=== PATIENT | male | born 1975 | race Caucasian/White ===

== ENCOUNTER 2022-01-16 16:55 | Observation (INO) | payer OTHER, SELFPAY ==
[2022-01-16] VITALS (38 sets, daily range): BP systolic 137–211; BP diastolic 87–127; PULSE 60–82; RESP 10–22; TEMP 36–36.4; O2SAT 95–100; BMI 28.8
--- NOTE | 2022-01-16 17:10 | DI.RAD.S_ITS ---
PROCEDURE: XR CHEST 1V INDICATIONS: chest pain TECHNIQUE: One view of the chest was acquired. COMPARISON: None. FINDINGS: Surgical changes and devices: None. Lungs and pleura: On this semiupright portable chest examination, no large pneumothorax or large pleural effusions are seen. No focal infiltrates are seen. Mediastinum: Mediastinal contours appear normal. Heart size is normal. Bones and chest wall: No suspicious bony lesions. Overlying soft tissues appear unremarkable. IMPRESSION: Limited portable chest examination, without a significant cardiopulmonary abnormality identified. Dictated by: Armen Gonzalez M.D. on 01/16/2022 at 16:57 Approved by: Armen Gonzalez M.D. on 01/16/2022 at 16:57
[2022-01-16 18:00] LABS: Alanine Aminotransferase 32 IU/L (<50); Albumin 4.8 g/dL (3.5-5.0); Albumin Globulin Ratio 1.5 (1.0-2.8); Alkaline Phosphatase 64 U/L (38-126); Aspartate Aminotransferase 34 IU/L (17-59); BUN Creatinine Ratio 26.7 (6-22); Bilirubin Total 0.8 mg/dL (0.2-1.3); Blood Urea Nitrogen 16 mg/dL (9-20); Calcium 9.3 mg/dL (8.4-10.2); Carbon Dioxide 21 mmol/L (22-32); Chloride 105 mmol/L (98-107); Creatine Kinase 109 U/L (55-170); Estimated Glomerular Filt Rate > 60 mL/min (>60); Globulin 3.3 g/dL (1.7-4.1); Glucose 99 mg/dL (70-100); Lipase 85 U/L (23-300); Magnesium 1.9 mg/dL (1.6-2.3); Potassium 3.8 mmol/L (3.4-5.1); Sodium 140 mmol/L (137-145); Total Protein 8.1 g/dL (6.3-8.2)
[2022-01-16 18:01] LABS: Add Manual Diff / Slide Review NO; Basophils Absolute Auto 0 /uL (0-100); Basophils Percent Auto 0.5 % (0-2); Eosinophils Absolute Auto 200 /uL (0-450); Eosinophils Percent Auto 2.9 % (2-4); Hematocrit 45.5 % (41-53); Hemoglobin 15.6 g/dL (13.5-17.5); Lymphocytes Absolute Auto 1300 /uL (1100-4500); Lymphocytes Percent Auto 19.7 % (25-40); Mean Corpuscular HGB Conc 34.2 % (30-36); Mean Corpuscular Hemoglobin 30.7 PG (26-34); Mean Corpuscular Volume 89.9 fL (80-100); Monocytes Absolute Auto 500 /uL (0-900); Monocytes Percent Auto 7.6 % (3-14); Neutrophils Absolute Auto 4500 /uL (1500-7000); Neutrophils Percent Auto 69.3 % (50-75); Platelet Count 189 X10^3/uL (150-400); Red Blood Cell Count 5.06 X10^6/uL (4.5-5.9); Red Cell Distribution Width 13.9 % (11.6-14.8); White Blood Cell Count 6.4 X10^3/uL (4.5-11.0)
[2022-01-16 18:15] LABS: CKMB % Relative Index 1.5 % (1.5-5.0); Creatine Kinase MB 1.64 ng/mL (<2.37)
--- NOTE | 2022-01-16 18:19 | DI.CT.S_ITS ---
PROCEDURE: CT HEAD/BRAIN WO CON INDICATIONS: Headache TECHNIQUE: Noncontrast 4.5 mm thick angled axial sections acquired from the foramen magnum to the vertex, with coronal and sagittal reformats. For radiation dose reduction, the following was used: automated exposure control, adjustment of mA and/or kV according to patient size. COMPARISON: None. FINDINGS: Image quality: Excellent. CSF spaces: Basal cisterns are patent. No extra-axial fluid collections. Ventricles are normal in size and shape. Brain: No midline shift. No intracranial masses or hemorrhage. Ta-white matter interface is normal. Skull and face: Calvarium and visualized facial bones are intact, without suspicious lesions. Sinuses: Visualized sinuses and mastoids are clear. IMPRESSION: No CT evidence of acute intracranial abnormalities. Dictated by: Juan Mckeon M.D. on 01/16/2022 at 18:30 Approved by: Juan Mckeon M.D. on 01/16/2022 at 18:31
[2022-01-16 18:22] LABS: HEMOLYSIS 78 (0-50)
--- NOTE | 2022-01-16 18:25 | ED.CHESTPAIN ---
HPI - Chest Pain General Chief Complaint: Chest Pain Stated Complaint: migraine/tightness in chest Time Seen by Provider: 01/16/22 18:07 Source: patient Mode of arrival: Ambulatory Limitations: no limitations History of Present Illness HPI narrative: Patient here for headache neck pain and chest pain that started about 2 or 3 hours ago. No back pain no abdominal pain. No syncope. No numbness tingling or weakness. Patient states he was told he had high blood pressure 3 years ago but never followed up or took blood pressure medication. Has never been on blood pressure medication. No recent exertional chest pain or at rest or dyspnea. No diaphoresis. No nausea or vomiting. Patient states lights do bother his eyes as well as sound. No history of migraine headaches. Blood pressure noted. Nicardipine ordered as well as imaging and EKG. No recent illness. No fever chills cough cold or congestion. No family history of brain aneurysms or heart attacks/in primary family. No chest aneurysm or dissection. No PEs or DVTs Fast exam is negative Related Data Home Medications Medication Instructions Recorded Confirmed No Known Home Medications 01/16/22 01/16/22 Allergies Allergy/AdvReac Type Severity Reaction Status Date / Time No Known Drug Allergies Allergy Verified 01/16/22 20:53 Review of Systems Review of Systems Narrative: GENERAL: Denies chills, fatigue, malaise, fever, sweats. HEENT: Denies sinus pain, ear pain, sore throat, positive neck pain RESPIRATORY: Denies dyspnea, cough CARDIOVASCULAR: Positive chest pain, negative palpitations GASTROINTESTINAL: Denies nausea, vomiting, abdominal pain : Denies dysuria, frequency, hematuria MUSCULOSKELETAL: denies muscle or bony pain SKIN: Denies rash, skin lesions NEUROLOGIC: Denies weakness, numbness, positive headache ROS Unobtainable: All systems reviewed & are unremarkable except as noted in HPI and below Patient History Social History household members: none Smoking Status: Current every day smoker alcohol intake: current Smoking Status: Current every day smoker alcohol intake frequency: 3 or more drinks per day Substance Use Type: marijuana Exam Narrative Exam Narrative: GENERAL: in no distress, not toxic not dyspneic HEAD: Normocephalic. EYES: Pupils equal round No scleral icterus. Mild photophobia with endoscopy. No papilledema. ENT: Mucous membranes moist. NECK: Trachea midline. No carotid bruits. No stridor. Strong bilateral carotid pulses, no meningeal signs CARDIOVASCULAR: Regular rate and rhythm without murmurs RESPIRATORY: Clear to auscultation. Breath sounds equal bilaterally. No wheezes, rales, or rhonchi. GASTROINTESTINAL: Abdomen soft, non-tender EXTREMITIES: No gross deformities. BACK: No flank tenderness. NEURO: AOx4. Clear speech no facial droop light touch intact to bilateral face and hands with strong equal staff genetic counselor. Strong bilateral patellar reflexes SKIN: Warm and dry PSYCH: Not anxious, is cooperative Initial Vital Signs Initial Vital Signs: Vital Signs Temperature 96.8 F L 01/16/22 17:06 Pulse Rate 66 01/16/22 17:06 Respiratory Rate 18 01/16/22 17:06 Blood Pressure 206/118 H 01/16/22 17:06 Pulse Oximetry 100 01/16/22 17:06 Oxygen Delivery Method 01/16/22 17:06 Course Course Course Narrative: No new issues during course of stay Decision to Admit Date: 01/16/22 Decision to Admit time: 18:50 Orders Ordered: ED Orders 01/16/22 17:10 XR chest 1V Stat EKG-12 Lead Stat 01/16/22 17:34 Complete Blood Count AUTO DIFF Stat Comprehensive Metabolic Panel Stat Lipase Stat Magnesium Stat Troponin & CK Cardiac Panel Stat 01/16/22 18:19 CT head/brain wo con Stat 01/16/22 20:30 COVID19 -Nasal RAPID/Pre-Proc Stat Acetaminophen (Acetaminophen 325 Mg Tablet) 650 mg PO Q6H PRN PRN Reason: Fever/Mild Pain (1-3) Hydrocodone Bitart/Acetaminophen (Hydrocodone/Acet 5/325 Tablet) 1 tab PO Q8H PRN PRN Reason: Pain, Moderate (4-6) Enalaprilat (Enalaprilat 2.5 Mg/ 2 Ml Vial) 0.625 mg IV Q6H PRN PRN Reason: Hypertension Enoxaparin Sodium (Enoxaparin 40 Mg/0.4 Ml Syringe) 40 mg SUBCUT DAILY KIM Nicardipine HCl 25 mg/ Sodium (Chloride) 250 mls @ 50 mls/hr IV TITRATE KIM; Protocol Last Titration: 01/16/22 19:16 Dose: 0 mg/hr, 0 mls/hr Documented By: Titration: 01/16/22 19:15 Dose: 5 mg/hr, 50 mls/hr Documented By: Admin: 01/16/22 18:51 Dose: 5 mg/hr, 50 mls/hr Documented By: NR Influenza Virus Vaccine (Influenza Vaccine Qiv 0.5 Ml Syringe) 0.5 ml IM .ONCE ONE Stop: 01/17/22 17:01 Lisinopril (Lisinopril 10 Mg Tablet) 10 mg PO DAILY KIM Naloxone HCl (Naloxone 0.4 Mg/Ml Vial) 0.2 mg IV Q2MIN PRN PRN Reason: Opiate Reversal Ondansetron HCl (Ondansetron 4 Mg Odt) 4 mg PO Q8HR PRN PRN Reason: Nausea And Vomiting Discontinued Medications Acetaminophen (Acetaminophen 325 Mg Tablet) 975 mg PO NOW ONE Stop: 01/16/22 20:39 Last Admin: 01/16/22 21:03 Dose: 975 mg Documented By: NR Enalaprilat (Enalaprilat 2.5 Mg/ 2 Ml Vial) 0.625 mg IV NOW ONE Stop: 01/16/22 19:17 Last Admin: 01/16/22 20:36 Dose: 0.625 mg Documented By: NR Morphine Sulfate (Morphine 4 Mg/Ml Inj) 2 mg IV NOW ONE Stop: 01/16/22 20:39 Last Admin: 01/16/22 23:02 Dose: Not Given Documented By: NR Ondansetron HCl (Ondansetron 4 Mg/2 Ml Inj) 4 mg IV NOW ONE Stop: 01/16/22 20:39 Last Admin: 01/16/22 23:03 Dose: Not Given Documented By: NR Reevaluation(s) Reevaluation #1: Patient up and walking to the bathroom, no ataxia. Nonantalgic. Not requiring any assist. Time: 18:51 Reevaluation #2: Blood pressure has improved 186/114 but map still at 1:29 a.m., headache has improved. Time: 21:24 Consultations Consultation #1: Spoke with hospitalist, Estella Penn, she would like to pause the nicardipine drip, would like to try IV enalapril with 0. 625, recheck blood pressure in 1 hour and call her back Time: 19:18 Consultation #2: Spoke with hospitalist, Estella Penn, she will admit patient. Not requiring ICU at this time. Has improved with enalapril IV. Time: 21:24 Vital Signs Vital signs: Vital Signs - 8 hr 01/16/22 17:06 01/16/22 17:24 01/16/22 17:26 Temperature 96.8 F L Pulse Rate 66 64 Respiratory Rate 18 Blood Pressure 206/118 H 197/121 H Pulse Oximetry 100 100 Oxygen Delivery Method Room Air 01/16/22 17:26 01/16/22 17:30 01/16/22 17:30 Temperature Pulse Rate 64 60 Respiratory Rate 16 16 Blood Pressure 206/119 H Pulse Oximetry 100 99 Oxygen Delivery Method 01/16/22 18:00 01/16/22 18:00 01/16/22 18:18 Temperature Pulse Rate 60 67 Respiratory Rate 13 Blood Pressure 206/126 H 206/126 H Pulse Oximetry 99 Oxygen Delivery Method Room Air 01/16/22 18:23 01/16/22 18:30 01/16/22 18:30 Temperature 97.5 F L Pulse Rate 64 Respiratory Rate 14 Blood Pressure 211/115 H Pulse Oximetry 100 Oxygen Delivery Method 01/16/22 18:54 01/16/22 18:54 01/16/22 19:00 Temperature Pulse Rate 65 Respiratory Rate 16 Blood Pressure 200/127 H 199/122 H Pulse Oximetry 98 Oxygen Delivery Method 01/16/22 19:00 01/16/22 19:06 01/16/22 19:06 Temperature Pulse Rate 66 70 Respiratory Rate 16 17 Blood Pressure 185/100 H Pulse Oximetry 98 96 Oxygen Delivery Method 01/16/22 19:10 01/16/22 19:10 01/16/22 19:15 Temperature Pulse Rate 69 68 Respiratory Rate 18 17 Blood Pressure 185/104 H Pulse Oximetry 96 96 Oxygen Delivery Method 01/16/22 19:15 01/16/22 19:20 01/16/22 19:20 Temperature Pulse Rate 69 Respiratory Rate 14 Blood Pressure 181/111 H 170/112 H Pulse Oximetry 96 Oxygen Delivery Method 01/16/22 19:25 01/16/22 19:25 01/16/22 19:30 Temperature Pulse Rate 68 Respiratory Rate 13 Blood Pressure 177/112 H 173/112 H Pulse Oximetry 96 Oxygen Delivery Method 01/16/22 19:30 01/16/22 19:35 01/16/22 19:35 Temperature Pulse Rate 68 72 Respiratory Rate 17 16 Blood Pressure 171/108 H Pulse Oximetry 96 97 Oxygen Delivery Method 01/16/22 19:40 01/16/22 19:40 01/16/22 19:45 Temperature Pulse Rate 72 66 Respiratory Rate 15 14 Blood Pressure 173/111 H Pulse Oximetry 98 97 Oxygen Delivery Method 01/16/22 19:45 01/16/22 19:50 01/16/22 19:50 Temperature Pulse Rate 68 Respiratory Rate 18 Blood Pressure 178/118 H 176/116 H Pulse Oximetry 96 Oxygen Delivery Method 01/16/22 19:55 01/16/22 19:55 01/16/22 20:00 Temperature Pulse Rate 67 Respiratory Rate 13 Blood Pressure 167/91 H 185/122 H Pulse Oximetry 97 Oxygen Delivery Method 01/16/22 20:00 01/16/22 20:05 01/16/22 20:05 Temperature Pulse Rate 65 64 Respiratory Rate 18 11 L Blood Pressure 186/114 H Pulse Oximetry 97 95 Oxygen Delivery Method 01/16/22 20:10 01/16/22 20:10 01/16/22 20:15 Temperature Pulse Rate 66 65 Respiratory Rate 17 12 Blood Pressure 182/110 H Pulse Oximetry 98 96 Oxygen Delivery Method 01/16/22 20:15 01/16/22 20:20 01/16/22 20:20 Temperature Pulse Rate 66 Respiratory Rate 14 Blood Pressure 174/113 H 182/122 H Pulse Oximetry 97 Oxygen Delivery Method 01/16/22 20:25 01/16/22 20:25 01/16/22 20:30 Temperature Pulse Rate 70 Respiratory Rate 22 Blood Pressure 177/118 H 190/115 H Pulse Oximetry 98 Oxygen Delivery Method 01/16/22 20:30 01/16/22 20:35 01/16/22 20:35 Temperature Pulse Rate 63 65 Respiratory Rate 10 L 13 Blood Pressure 188/118 H Pulse Oximetry 96 97 Oxygen Delivery Method 01/16/22 21:00 01/16/22 21:00 01/16/22 21:18 Temperature Pulse Rate 65 Respiratory Rate 14 Blood Pressure 208/97 H 178/105 H Pulse Oximetry 95 Oxygen Delivery Method 01/16/22 21:18 01/16/22 21:30 01/16/22 21:31 Temperature Pulse Rate 68 63 62 Respiratory Rate 19 19 19 Blood Pressure Pulse Oximetry 96 96 96 Oxygen Delivery Method 01/16/22 21:31 Temperature Pulse Rate Respiratory Rate Blood Pressure 162/93 H Pulse Oximetry Oxygen Delivery Method MDM - Chest Pain Differential Diagnosis Differential diagnosis: Likely stable angina, unstable angina pectoris, chest pain and other (Hypertensive urgency/subarachnoid bleed) Lab Data Result diagrams: 01/16/22 17:34 01/16/22 17:34 Labs: Lab Results 01/16/22 01/16/22 01/16/22 Range/Units 17:34 17:34 17:34 WBC 6.4 (4.5-11.0) X10^3/uL RBC 5.06 (4.5-5.9) X10^6/uL Hgb 15.6 (13.5-17.5) g/dL Hct 45.5 (41-53) % MCV 89.9 (80-100) fL MCH 30.7 (26-34) PG MCHC 34.2 (30-36) % RDW 13.9 (11.6-14.8) % Plt Count 189 (150-400) X10^3/uL Neut % (Auto) 69.3 (50-75) % Lymph % (Auto) 19.7 L (25-40) % [place] % (Auto) 7.6 (3-14) % Eos % (Auto) 2.9 (2-4) % Baso % (Auto) 0.5 (0-2) % Neut # (Auto) 4500 (7926-9175) /uL Lymph # (Auto) 1300 (8807-4671) /uL [place] # (Auto) 500 (0-900) /uL Eos # (Auto) 200 (0-450) /uL Baso # (Auto) 0 (0-100) /uL Sodium 140 (137-145) mmol/L Potassium 3.8 (3.4-5.1) mmol/L Chloride 105 (98-107) mmol/L Carbon Dioxide 21 L (22-32) mmol/L BUN 16 (9-20) mg/dL Creatinine 0.60 L (0.66-1.25) mg/dL Estimated GFR > 60 (>60) mL/min BUN/Creatinine Ratio 26.7 H (6-22) Glucose 99 (70-100) mg/dL Hemoglobin A1c 5.0 (4.0-6.0) % Calcium 9.3 (8.4-10.2) mg/dL Magnesium 1.9 (1.6-2.3) mg/dL Total Bilirubin 0.8 (0.2-1.3) mg/dL AST 34 (17-59) IU/L ALT 32 (<50) IU/L Alkaline Phosphatase 64 (38-126) U/L Total Creatine Kinase 109 (55-170) U/L CK-MB (CK-2) 1.64 (<2.37) ng/mL CK-MB (CK-2) Rel Index 1.5 (1.5-5.0) % Troponin I 0.030 (0.01-0.034) ng/mL Total Protein 8.1 (6.3-8.2) g/dL Albumin 4.8 (3.5-5.0) g/dL Globulin 3.3 (1.7-4.1) g/dL Albumin/Globulin Ratio 1.5 (1.0-2.8) Lipase 85 (23-300) U/L SARS-CoV-2 (PCR) (Negative) 01/16/22 Range/Units 20:30 WBC (4.5-11.0) X10^3/uL RBC (4.5-5.9) X10^6/uL Hgb (13.5-17.5) g/dL Hct (41-53) % MCV (80-100) fL MCH (26-34) PG MCHC (30-36) % RDW (11.6-14.8) % Plt Count (150-400) X10^3/uL Neut % (Auto) (50-75) % Lymph % (Auto) (25-40) % [place] % (Auto) (3-14) % Eos % (Auto) (2-4) % Baso % (Auto) (0-2) % Neut # (Auto) (9570-9632) /uL Lymph # (Auto) (5612-9299) /uL [place] # (Auto) (0-900) /uL Eos # (Auto) (0-450) /uL Baso # (Auto) (0-100) /uL Sodium (137-145) mmol/L Potassium (3.4-5.1) mmol/L Chloride (98-107) mmol/L Carbon Dioxide (22-32) mmol/L BUN (9-20) mg/dL Creatinine (0.66-1.25) mg/dL Estimated GFR (>60) mL/min BUN/Creatinine Ratio (6-22) Glucose (70-100) mg/dL Hemoglobin A1c (4.0-6.0) % Calcium (8.4-10.2) mg/dL Magnesium (1.6-2.3) mg/dL Total Bilirubin (0.2-1.3) mg/dL AST (17-59) IU/L ALT (<50) IU/L Alkaline Phosphatase (38-126) U/L Total Creatine Kinase (55-170) U/L CK-MB (CK-2) (<2.37) ng/mL CK-MB (CK-2) Rel Index (1.5-5.0) % Troponin I (0.01-0.034) ng/mL Total Protein (6.3-8.2) g/dL Albumin (3.5-5.0) g/dL Globulin (1.7-4.1) g/dL Albumin/Globulin Ratio (1.0-2.8) Lipase (23-300) U/L SARS-CoV-2 (PCR) Negative (Negative) Imaging Data CT scan - head: Radiologist's Impression: [place] [address] CT Scan Report Signed Patient: Az Herbert MR#: [id number] : 1975 Acct:[id number] Age/Sex: 46 / M Date of Service: 01/16/22 Loc: ED Accession Number: [id number] ?? Procedure: CT head/brain wo con Ordering Provider: Amadeo Johnson MD PROCEDURE:? CT HEAD/BRAIN WO CON ? INDICATIONS:? Headache ? TECHNIQUE:? Noncontrast 4.5 mm thick angled axial sections acquired from the foramen magnum to the vertex, with coronal and sagittal reformats.? For radiation dose reduction, the following was used:? automated exposure control, adjustment of mA and/or kV according to patient size.? ? COMPARISON:? None. ? FINDINGS:? Image quality:? Excellent.? ? CSF spaces:? Basal cisterns are patent.? No extra-axial fluid collections.? Ventricles are normal in size and shape.? ? Brain:? No midline shift.? No intracranial masses or hemorrhage.? Ta-white matter interface is normal.? ? Skull and face:? Calvarium and visualized facial bones are intact, without suspicious lesions.? ? Sinuses:? Visualized sinuses and mastoids are clear.? ? IMPRESSION:? No CT evidence of acute intracranial abnormalities. ? ? Dictated by: Juan Mckeon M.D. on 01/16/2022 at 18:30 ? ? Approved by: Juan Mckeon M.D. on 01/16/2022 at 18:31 ? Chest x-ray: Radiologist's Impression: [address] [address] XRay Report Signed Patient: Az Herbert MR#: [id number] : 1975 Acct:[id number] Age/Sex: 46 / M Date of Service: 01/16/22 Loc: ED Accession Number: [id number] ?? Procedure: XR chest 1V Ordering Provider: Giulia Santana D.O. PROCEDURE:? XR CHEST 1V ? INDICATIONS:? chest pain ? TECHNIQUE:? One view of the chest was acquired.? ? COMPARISON:? None. ? FINDINGS:? ? Surgical changes and devices:? None.? ? Lungs and pleura:? On this semiupright portable chest examination, no large pneumothorax or large pleural effusions are seen.? No focal infiltrates are seen.? ? Mediastinum:? Mediastinal contours appear normal.? Heart size is normal.? ? Bones and chest wall:? No suspicious bony lesions.? Overlying soft tissues appear unremarkable.? IMPRESSION:? ? Limited portable chest examination, without a significant cardiopulmonary abnormality identified.? ? ? Dictated by: Armen Gonzalez M.D. on 01/16/2022 at 16:57 ? ? Approved by: Armen Gonzalez M.D. on 01/16/2022 at 16:57 ? ECG Data Interpretation: Sinus rhythm, artifact is pronounced. Rate [address] elevation or depression MDM Narrative Medical decision making narrative: Appropriate for admission for hypertensive urgency. At this time on Cardene drip. Will need ICU admission. Patient understands and desires admission. During course of stay in the department, Cardene drip was removed at request of hospitalist to try other medications. Patient chest pain and headache did improve. Critical Care Time Critical Care Time Attestation: Critical Care Time 35 minutes: Critical care time is separate from other billable procedures. This critical care time includes consultation with family and other consulting doctors, review of records, and interpretation of data from labs, EKGs, imaging, etc. Discharge Plan Departure Patient Disposition: Admitted as Observation Clinical Impression: Hypertensive urgency Admit Date/Time: 01/16/22 21:45 Admit Provider: Nissa Penn
[2022-01-16] MEDS: NICARDIPINE 25 MG in SODIUM CHLORIDE 0.9% 240 ML 50 MG IV (18:51)
[2022-01-16] MEDS: ENALAPRILAT 2.5 MG/ 2 ML VIAL 0.625 MG IV (20:36)
[2022-01-16 21:03] LABS: COVID19 -Nasal RAPID Negative (Negative)
[2022-01-16] MEDS: ACETAMINOPHEN 325 MG TABLET 975 MG PO (21:03)
--- NOTE | 2022-01-16 23:55 | P.HP_ITS ---
History of Present Illness History of Present Illness Date Patient Seen: 01/16/22 Time Patient Seen: 23:55 Chief complaint: migraine/tightness in chest Narrative: Az Herbert is a 46 y.o. smoker with no significant medical history who developed a headache he has had previously. He stated he then started to experience throbby throat pain that then radiated into his upper chest on both sides. He then had tingling of his fingers in both hands. Denies fever, sweats or chills. Stated he was yawning a lot. He had back surgery after a fracture in 2019 and stated after the surgery, he developed high blood pressure, follow-up with a physician at [facility], but eventually stopped follow-up. 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 He denies quitting alcohol consumption abruptly or having withdrawal symptoms when he has had to stop in the past. He was initially started on a nifedipine drip in the ED and requested for admission to the ICU. I discussed the case with the ED provider and he agreed to stop the infusion and administer IV enalapril 0.625 mg. His blood pressure dropped to 182/118 and by the time he arrived to the floor, it was 151/87. Chest x-ray was negative for any acute cardiopulmonary processes. He is afebrile, blood pressure 140/96 though on presentation to the ED his blood pressure was 206/118 heart rate 64 respiratory rate 20 oxygen saturation of 96% on room air he weighs 102 kg with a BMI of 28.8. CBC is unremarkable, bicarb 21, creatinine 0.60, his A1c is 5, the rest of his chemistries are within normal limits and COVID-19 PCR is negative. FH: Mother is 74, father is 78, he denies they have health problems but states other family member have hypertension. Patient History Medical History Alcohol abuse, daily use Tobacco consumption Family & Social History Social History: household members none Prior Living Arrangements House Safety & Behavioral: Feels Safe in Current Yes Environment Been Physically Hurt or No Threatened By a Person Tobacco & Substance use: Smoking Status Current every day smoker alcohol intake current alcohol intake frequency 3 or more drinks per day Substance Use Type marijuana Meds Home Medications and Allergies Home Medications Medication Instructions Recorded Confirmed Type No Known Home Medications 01/16/22 01/16/22 History Allergies Allergy/AdvReac Type Severity Reaction Status Date / Time No Known Drug Allergies Allergy Verified 01/16/22 20:53 Review of Systems Review of Systems ROS: Yes All systems reviewed with the patient and are negative except as otherwise documented Exam Vital Signs (past 8 hours): - 01/16/22 17:06 01/16/22 17:24 01/16/22 17:26 Temperature 96.8 F L Pulse Rate 66 64 Respiratory Rate 18 Blood Pressure 206/118 H 197/121 H Pulse Oximetry 100 100 Oxygen Delivery Method Room Air Oxygen Flow Rate 01/16/22 17:26 01/16/22 17:30 01/16/22 17:30 Temperature Pulse Rate 64 60 Respiratory Rate 16 16 Blood Pressure 206/119 H Pulse Oximetry 100 99 Oxygen Delivery Method Oxygen Flow Rate 01/16/22 18:00 01/16/22 18:00 01/16/22 18:18 Temperature Pulse Rate 60 67 Respiratory Rate 13 Blood Pressure 206/126 H 206/126 H Pulse Oximetry 99 Oxygen Delivery Method Room Air Oxygen Flow Rate 01/16/22 18:23 01/16/22 18:30 01/16/22 18:30 Temperature 97.5 F L Pulse Rate 64 Respiratory Rate 14 Blood Pressure 211/115 H Pulse Oximetry 100 Oxygen Delivery Method Oxygen Flow Rate 01/16/22 18:54 01/16/22 18:54 01/16/22 19:00 Temperature Pulse Rate 65 Respiratory Rate 16 Blood Pressure 200/127 H 199/122 H Pulse Oximetry 98 Oxygen Delivery Method Oxygen Flow Rate 01/16/22 19:00 01/16/22 19:06 01/16/22 19:06 Temperature Pulse Rate 66 70 Respiratory Rate 16 17 Blood Pressure 185/100 H Pulse Oximetry 98 96 Oxygen Delivery Method Oxygen Flow Rate 01/16/22 19:10 01/16/22 19:10 01/16/22 19:15 Temperature Pulse Rate 69 68 Respiratory Rate 18 17 Blood Pressure 185/104 H Pulse Oximetry 96 96 Oxygen Delivery Method Oxygen Flow Rate 01/16/22 19:15 01/16/22 19:20 01/16/22 19:20 Temperature Pulse Rate 69 Respiratory Rate 14 Blood Pressure 181/111 H 170/112 H Pulse Oximetry 96 Oxygen Delivery Method Oxygen Flow Rate 01/16/22 19:25 01/16/22 19:25 01/16/22 19:30 Temperature Pulse Rate 68 Respiratory Rate 13 Blood Pressure 177/112 H 173/112 H Pulse Oximetry 96 Oxygen Delivery Method Oxygen Flow Rate 01/16/22 19:30 01/16/22 19:35 01/16/22 19:35 Temperature Pulse Rate 68 72 Respiratory Rate 17 16 Blood Pressure 171/108 H Pulse Oximetry 96 97 Oxygen Delivery Method Oxygen Flow Rate 01/16/22 19:40 01/16/22 19:40 01/16/22 19:45 Temperature Pulse Rate 72 66 Respiratory Rate 15 14 Blood Pressure 173/111 H Pulse Oximetry 98 97 Oxygen Delivery Method Oxygen Flow Rate 01/16/22 19:45 01/16/22 19:50 01/16/22 19:50 Temperature Pulse Rate 68 Respiratory Rate 18 Blood Pressure 178/118 H 176/116 H Pulse Oximetry 96 Oxygen Delivery Method Oxygen Flow Rate 01/16/22 19:55 01/16/22 19:55 01/16/22 20:00 Temperature Pulse Rate 67 Respiratory Rate 13 Blood Pressure 167/91 H 185/122 H Pulse Oximetry 97 Oxygen Delivery Method Oxygen Flow Rate 01/16/22 20:00 01/16/22 20:05 01/16/22 20:05 Temperature Pulse Rate 65 64 Respiratory Rate 18 11 L Blood Pressure 186/114 H Pulse Oximetry 97 95 Oxygen Delivery Method Oxygen Flow Rate 01/16/22 20:10 01/16/22 20:10 01/16/22 20:15 Temperature Pulse Rate 66 65 Respiratory Rate 17 12 Blood Pressure 182/110 H Pulse Oximetry 98 96 Oxygen Delivery Method Oxygen Flow Rate 01/16/22 20:15 01/16/22 20:20 01/16/22 20:20 Temperature Pulse Rate 66 Respiratory Rate 14 Blood Pressure 174/113 H 182/122 H Pulse Oximetry 97 Oxygen Delivery Method Oxygen Flow Rate 01/16/22 20:25 01/16/22 20:25 01/16/22 20:30 Temperature Pulse Rate 70 Respiratory Rate 22 Blood Pressure 177/118 H 190/115 H Pulse Oximetry 98 Oxygen Delivery Method Oxygen Flow Rate 01/16/22 20:30 01/16/22 20:35 01/16/22 20:35 Temperature Pulse Rate 63 65 Respiratory Rate 10 L 13 Blood Pressure 188/118 H Pulse Oximetry 96 97 Oxygen Delivery Method Oxygen Flow Rate 01/16/22 21:00 01/16/22 21:00 01/16/22 21:18 Temperature Pulse Rate 65 Respiratory Rate 14 Blood Pressure 208/97 H 178/105 H Pulse Oximetry 95 Oxygen Delivery Method Oxygen Flow Rate 01/16/22 21:18 01/16/22 21:30 01/16/22 21:31 Temperature Pulse Rate 68 63 62 Respiratory Rate 19 19 19 Blood Pressure Pulse Oximetry 96 96 96 Oxygen Delivery Method Oxygen Flow Rate 01/16/22 21:31 01/16/22 22:00 01/16/22 22:00 Temperature Pulse Rate 64 Respiratory Rate 16 Blood Pressure 162/93 H 151/87 H Pulse Oximetry 95 Oxygen Delivery Method Oxygen Flow Rate 01/16/22 22:20 01/16/22 22:20 01/16/22 22:30 Temperature Pulse Rate 72 Respiratory Rate 18 Blood Pressure 137/90 140/90 Pulse Oximetry 95 Oxygen Delivery Method Oxygen Flow Rate 01/16/22 22:30 01/16/22 23:00 01/16/22 23:00 Temperature Pulse Rate 68 64 Respiratory Rate 13 20 Blood Pressure 140/96 H Pulse Oximetry 96 96 Oxygen Delivery Method Oxygen Flow Rate 01/16/22 22:20 01/16/22 21:59 Temperature Pulse Rate Respiratory Rate Blood Pressure Pulse Oximetry Oxygen Delivery Method Room Air Room Air Oxygen Flow Rate 98 Oxygen Delivery Method Room Air Oxygen Flow Rate 98 Narrative Exam Narrative: Gen: Alert, oriented, well-developed y.o. 46 male, NAD HEENT: normocephalic, atraumatic, conjunctiva clear, sclera non-icteric, oral mucosa pink and moist Neck: supple, full ROM, no JVD, trachea is midline Resp: Lungs CTA, non-labored breathing CV: RRR, no murmur or rubs Abd: soft, non-tender, normoactive BTs Skin: no lesions or rashes, dry and intact Neuro: Alert and oriented X 4 w/no focal deficits. Speech clear and coherent. Extremities: moves all 4 extremities, is ambulatory, negative Lucretia?s sign Psyche: normal mood and affect. Objective ECG Impression: Initial EKG that was in the chart showed a normal sinus rhythm with atrial flutter though question whether it might have been artifact, repeat EKG states he has a incomplete right bundle appears to be seen in AVR and V1. Labs Result Diagrams: 01/16/22 17:34 01/16/22 17:34 Labs: Laboratory Results - last 24 hr 01/16/22 01/16/22 01/16/22 17:34 17:34 17:34 WBC 6.4 RBC 5.06 Hgb 15.6 Hct 45.5 MCV 89.9 MCH 30.7 MCHC 34.2 RDW 13.9 Plt Count 189 Neut % (Auto) 69.3 Lymph % (Auto) 19.7 L [place] % (Auto) 7.6 Eos % (Auto) 2.9 Baso % (Auto) 0.5 Neut # (Auto) 4500 Lymph # (Auto) 1300 [place] # (Auto) 500 Eos # (Auto) 200 Baso # (Auto) 0 Sodium 140 Potassium 3.8 Chloride 105 Carbon Dioxide 21 L BUN 16 Creatinine 0.60 L Estimated GFR > 60 BUN/Creatinine Ratio 26.7 H Glucose 99 Hemoglobin A1c 5.0 Calcium 9.3 Magnesium 1.9 Total Bilirubin 0.8 AST 34 ALT 32 Alkaline Phosphatase 64 Total Creatine Kinase 109 CK-MB (CK-2) 1.64 CK-MB (CK-2) Rel Index 1.5 Troponin I 0.030 Total Protein 8.1 Albumin 4.8 Globulin 3.3 Albumin/Globulin Ratio 1.5 Lipase 85 SARS-CoV-2 (PCR) 01/16/22 20:30 WBC RBC Hgb Hct MCV MCH MCHC RDW Plt Count Neut % (Auto) Lymph % (Auto) [place] % (Auto) Eos % (Auto) Baso % (Auto) Neut # (Auto) Lymph # (Auto) [place] # (Auto) Eos # (Auto) Baso # (Auto) Sodium Potassium Chloride Carbon Dioxide BUN Creatinine Estimated GFR BUN/Creatinine Ratio Glucose Hemoglobin A1c Calcium Magnesium Total Bilirubin AST ALT Alkaline Phosphatase Total Creatine Kinase CK-MB (CK-2) CK-MB (CK-2) Rel Index Troponin I Total Protein Albumin Globulin Albumin/Globulin Ratio Lipase SARS-CoV-2 (PCR) Negative Assessment & Plan Assessment & Plan narrative: Az Herbert is placed into observation for a hypertensive urgency that was largely resolved by the time he arrived to the floor. Hypertensive urgency, resolved and present on admission * He is on telemetry * IV enalapril prn for a systolic of greater than 180 and a map of 100 * He should be discharged on lisinopril 10 mg po daily Abnormal findings on EKG * Will trend troponins * Consider echo * Start ASA 81 mg daily * Cardiac risk stratification, lipids, A1c VTE Prophylaxis: Wells risk score 0 X Enoxaparin 40 mg subQ once daily Bilateral SCDs Patient is placed into observation as his stay is not expected to exceed 2 mid nights. FEN: IV fluids: saline lock, diet: heart healthy, labs: CBC, C/BMP, liver enzymes, Mag, PT/INR Consultants None Dispo: probable discharge to home Code status: Full code as discussed with the patient who identifies his mother Vianca Bazzi, his surrogate and POA. [X] I have utilized all available immediate resources to obtain, update, or review of the patient's current medications VTE Deep Vein Thrombosis/Pulmonary Embolism Present on Admission: No MIPS - Admit I confirm the patient?s Advance Care Plan is present, Code status is documented, Surrogate decision maker is in patient?s record: Yes MIPS - DC The patient has current or prior documentation of left ventricular ejection fraction (LVEF) less than 40%, or moderate or severely depressed left ventricular systolic function.: No COVID-19 COVID-19 status: Negative Result date/Date tested (Pos, Neg/Pending): 01/16/22 Quality VTE Deep Vein Thrombosis/Pulmonary Embolism Present on Admission: No
[2022-01-17 01:24] LABS: Troponin I 0.153 ng/mL (0.01-0.034)
--- NOTE | 2022-01-17 01:36 | DI.ECHO.S_ITS ---
[facility]---------+ [facility] +---------+ : : [address] : : : : [id number] : : : : Phone: [phone] Echocardiogram Report + + :Name: GABINO YA Study Date: 01/17/2022 Height: 74 in : :[facility] ReadingLocation: Weight: 225 lb : : Gender: Male BSA: 2.3 m2 : :: 1975 Age: 46 yrs BP: 140/96 mmHg: :Reason For Study: HYPERTENSIVE URGENY, ELEVATED TROPONIN : :Ordering Physician: Marvin CHRISTYformed By: Jemma Bender : :Referring: HUY CHRISTY : + + Interpretation Summary The left ventricle is normal in size. Left ventricular systolic function appears normal without focal wall motion abnormalities. The ejection fraction is estimated to be 60-65%. Diastolic parameters suggest probable normal left ventricular diastolic function and normal filling pressures. The right ventricle is normal in size and function. The left atrial size is normal. Right atrial size is normal. There is no significant valvular heart disease. The aortic root is normal size. Procedure: A two-dimensional transthoracic echocardiogram with color flow and Doppler was performed. The study quality was technically adequate. There is no prior echocardiogram noted for this patient. The patient was in sinus bradycardia with heart rates between 55-65 bpm during the exam. Left Ventricle: The left ventricle is normal in size. There is mild concentric left ventricular hypertrophy. Left ventricular systolic function appears normal without focal wall motion abnormalities. The ejection fraction is estimated to be 60-65%. Diastolic parameters suggest probable normal left ventricular diastolic function and normal filling pressures. Right Ventricle: The right ventricle is normal in size and function. Atria: The left atrial size is normal. Right atrial size is normal. There is no Doppler evidence for an interatrial shunt. Mitral Valve: The mitral valve is normal in structure and function. There is trace mitral regurgitation. Aortic Valve: The aortic valve is trileaflet. The aortic valve opens well. There is no aortic valve stenosis. There is trace aortic regurgitation. Tricuspid Valve: The tricuspid valve is normal in structure and function. There is trace tricuspid regurgitation. Pulmonic Valve: The pulmonic valve leaflets are thin and pliable; valve motion is normal. There is trace pulmonic regurgitation. There is no significant valvular heart disease. Great Vessels: The aortic root is normal size. The dimensions of the ascending aorta are normal. The IVC is of normal diameter and collapses greater than 50% with a sniff. This suggests a low right atrial pressure of 3 mm Hg. Pericardium/ Pleura There is no pericardial effusion. There is no pleural effusion. MMode/2D Measurements & Calculations LVIDd: 5.0 cm LVOT diam: 2.7 cm LVIDs: 3.4 cm Ao root diam: 3.6 cm FS: 32.2 % asc Aorta Diam: 3.3 cm IVSd: 1.2 cm Ao Arch Diam (Prox Trans): 3.2 cm LVPWd: 1.1 cm LV wyatt. diameter/BSA (cm/m^2): 2.2 LV sys. diameter/BSA (cm/m^2): 1.5 LA A2 area: 19.8 cm2 RA long axis: 5.5 cm LA A4 area: 19.2 cm2 RA area: 17.7 cm2 LA length (vol): 5.8 cm RA vol: 48.3 ml LA vol: 56.1 ml RA : 21.1 ml/m2 LA vol index: 24.5 ml/m2 IVC diam: 1.8 cm RVD1 (basal): 3.9 cm RVD2 (mid): 3.6 cm TAPSE: 2.1 cm Doppler Measurements & Calculations Ao V2 max: 120.6 cm/sec LVOT Max Doron: 108.7 cm/sec Ao V2 mean: 82.1 cm/sec LV V1 max P.7 mmHg Ao max P.8 mmHg LV V1 VTI: 23.8 cm Ao mean P.0 mmHg CARLENE(I,D): 5.9 cm2 Ao V2 VTI: 22.5 cm CARLENE(V,D): 5.1 cm2 sev ratio: 1.1 CARLENE indexed to BSA (cm^2/m^2): 2.6 MV E max doron: 63.1 cm/sec PA V2 max: 98.5 cm/sec MV A max doron: 56.3 cm/sec PA V2 mean: 67.0 cm/sec MV E/A: 1.1 PA mean P.1 mmHg Med Peak E' Doron: 10.0 cm/sec PA pr(Accel): 19.1 mmHg E/E' med: 6.3 Lat Peak E' Doron: 11.6 cm/sec E/E' lat: 5.5 E/e' average: 5.9 MV dec time: 0.20 sec SV(LVOT): 133.6 ml Reading Physician:08:15 AM
[2022-01-17] MEDS: ENOXAPARIN 40 MG/0.4 ML SYRINGE 100 MG SUBCUT ×2 (02:17→08:50)
[2022-01-17 03:25] VITALS: BP 137/74; PULSE 68; RESP 18; TEMP 36.7; O2SAT 98
--- NOTE | 2022-01-17 05:31 | PC.NURSE ---
Pt is AxOx4, independent and cooperative. VSS, pt c/o headache 1 and declined pain med. Pt stated he can tolerate it. Pt's migraine gets better by dark and quiet environment. Pt's Troponin level was up 0.153 around 0130 so pt got 100mg Lovenox at 0200. Pt slept well. Tele shows SR with some PVCs. Continue monitor.
[2022-01-17 06:50] LABS: Add Manual Diff / Slide Review NO; Basophils Absolute Auto 0 /uL (0-100); Basophils Percent Auto 0.4 % (0-2); Eosinophils Absolute Auto 100 /uL (0-450); Eosinophils Percent Auto 1.6 % (2-4); Hemoglobin 15.8 g/dL (13.5-17.5); Lymphocytes Absolute Auto 1600 /uL (1100-4500); Lymphocytes Percent Auto 20.4 % (25-40); Mean Corpuscular HGB Conc 34.2 % (30-36); Mean Corpuscular Hemoglobin 30.5 PG (26-34); Mean Corpuscular Volume 89.2 fL (80-100); Monocytes Absolute Auto 700 /uL (0-900); Monocytes Percent Auto 9.3 % (3-14); Neutrophils Absolute Auto 5400 /uL (1500-7000); Neutrophils Percent Auto 68.3 % (50-75); Platelet Count 210 X10^3/uL (150-400); Red Blood Cell Count 5.16 X10^6/uL (4.5-5.9); Red Cell Distribution Width 13.9 % (11.6-14.8)
[2022-01-17 07:03] LABS: Cholesterol 187 mg/dL (140-199); HDL Cholesterol 65 mg/dL (40-60); LDL Cholesterol Calculated 110 mg/dL (<100); Triglycerides 58 mg/dL (35-150)
[2022-01-17 07:04] LABS: Alanine Aminotransferase 29 IU/L (<50); Albumin 4.1 g/dL (3.5-5.0); Albumin Globulin Ratio 1.5 (1.0-2.8); Alkaline Phosphatase 50 U/L (38-126); Aspartate Aminotransferase 24 IU/L (17-59); BUN Creatinine Ratio 17.1 (6-22); Bilirubin Total 0.7 mg/dL (0.2-1.3); Blood Urea Nitrogen 12 mg/dL (9-20); Calcium 8.9 mg/dL (8.4-10.2); Carbon Dioxide 27 mmol/L (22-32); Chloride 102 mmol/L (98-107); Estimated Glomerular Filt Rate > 60 mL/min (>60); Globulin 2.7 g/dL (1.7-4.1); Glucose 90 mg/dL (70-100); HEMOLYSIS < 15 (0-50); Magnesium 1.8 mg/dL (1.6-2.3); Potassium 3.7 mmol/L (3.4-5.1); Sodium 137 mmol/L (137-145); Total Protein 6.8 g/dL (6.3-8.2)
--- NOTE | 2022-01-17 07:12 | PM.PN.1 ---
Exam Vital Signs (past 8 hours): - 01/17/22 04:20 01/17/22 03:25 Temperature 98.0 F Pulse Rate 68 Respiratory Rate 18 Blood Pressure 137/74 Pulse Oximetry 98 Oxygen Delivery Method Room Air Oxygen Flow Rate 0 Oxygen Delivery Method Room Air Oxygen Flow Rate 0 Narrative Exam Narrative: Gen: Alert, oriented, well-developed y.o. 46 male, NAD HEENT: normocephalic, atraumatic, conjunctiva clear, sclera non-icteric, oral mucosa pink and moist Neck: supple, full ROM, no JVD, trachea is midline Resp: Lungs CTA, non-labored breathing CV: RRR, no murmur or rubs Abd: soft, non-tender, normoactive BTs Skin: no lesions or rashes, dry and intact Neuro: Alert and oriented X 4 w/no focal deficits. Speech clear and coherent. Extremities: moves all 4 extremities, is ambulatory, negative Lucretia?s sign Psyche: normal mood and affect. Objective Labs Result Diagrams: 01/17/22 06:30 01/17/22 06:30 Labs: Laboratory Results - last 24 hr 01/16/22 01/16/22 01/16/22 17:34 17:34 17:34 WBC 6.4 RBC 5.06 Hgb 15.6 Hct 45.5 MCV 89.9 MCH 30.7 MCHC 34.2 RDW 13.9 Plt Count 189 Neut % (Auto) 69.3 Lymph % (Auto) 19.7 L [place] % (Auto) 7.6 Eos % (Auto) 2.9 Baso % (Auto) 0.5 Neut # (Auto) 4500 Lymph # (Auto) 1300 [place] # (Auto) 500 Eos # (Auto) 200 Baso # (Auto) 0 Sodium 140 Potassium 3.8 Chloride 105 Carbon Dioxide 21 L BUN 16 Creatinine 0.60 L Estimated GFR > 60 BUN/Creatinine Ratio 26.7 H Glucose 99 Hemoglobin A1c 5.0 Calcium 9.3 Magnesium 1.9 Total Bilirubin 0.8 AST 34 ALT 32 Alkaline Phosphatase 64 Total Creatine Kinase 109 CK-MB (CK-2) 1.64 CK-MB (CK-2) Rel Index 1.5 Troponin I 0.030 Total Protein 8.1 Albumin 4.8 Globulin 3.3 Albumin/Globulin Ratio 1.5 Triglycerides Cholesterol LDL Cholesterol, Calc HDL Cholesterol Lipase 85 SARS-CoV-2 (PCR) 01/16/22 01/17/22 01/17/22 20:30 00:46 06:30 WBC RBC Hgb Hct MCV MCH MCHC RDW Plt Count Neut % (Auto) Lymph % (Auto) [place] % (Auto) Eos % (Auto) Baso % (Auto) Neut # (Auto) Lymph # (Auto) [place] # (Auto) Eos # (Auto) Baso # (Auto) Sodium Potassium Chloride Carbon Dioxide BUN Creatinine Estimated GFR BUN/Creatinine Ratio Glucose Hemoglobin A1c Calcium Magnesium Total Bilirubin AST ALT Alkaline Phosphatase Total Creatine Kinase CK-MB (CK-2) CK-MB (CK-2) Rel Index Troponin I 0.153 H* Total Protein Albumin Globulin Albumin/Globulin Ratio Triglycerides 58 Cholesterol 187 LDL Cholesterol, Calc 110 H HDL Cholesterol 65 H Lipase SARS-CoV-2 (PCR) Negative 01/17/22 01/17/22 06:30 06:30 WBC 8.0 RBC 5.16 Hgb 15.8 Hct 46.0 MCV 89.2 MCH 30.5 MCHC 34.2 RDW 13.9 Plt Count 210 Neut % (Auto) 68.3 Lymph % (Auto) 20.4 L [place] % (Auto) 9.3 Eos % (Auto) 1.6 L Baso % (Auto) 0.4 Neut # (Auto) 5400 Lymph # (Auto) 1600 [place] # (Auto) 700 Eos # (Auto) 100 Baso # (Auto) 0 Sodium 137 Potassium 3.7 Chloride 102 Carbon Dioxide 27 BUN 12 Creatinine 0.70 Estimated GFR > 60 BUN/Creatinine Ratio 17.1 Glucose 90 Hemoglobin A1c Calcium 8.9 Magnesium 1.8 Total Bilirubin 0.7 AST 24 ALT 29 Alkaline Phosphatase 50 Total Creatine Kinase CK-MB (CK-2) CK-MB (CK-2) Rel Index Troponin I Total Protein 6.8 Albumin 4.1 Globulin 2.7 Albumin/Globulin Ratio 1.5 Triglycerides Cholesterol LDL Cholesterol, Calc HDL Cholesterol Lipase SARS-CoV-2 (PCR) [facility] Medical History Alcohol abuse, daily use Tobacco consumption Social History household members: none Smoking Status: Current every day smoker alcohol intake: current Assessment & Plan Assessment & Plan narrative: Hypertensive urgency, resolved and present on admission He is on telemetry IV enalapril prn for a systolic of greater than 180 and a map of 100 He should be discharged on lisinopril 10 mg po daily Abnormal findings on EKG Will trend troponins Consider echo Start ASA 81 mg daily Cardiac risk stratification, lipids, A1c VTE Prophylaxis: Lovenox therapeutic Dispo: probable discharge to home Code status: Full code as discussed with the patient who identifies his mother Vianca Bazzi, his surrogate and POA. COVID-19 COVID-19 status: Negative Result date/Date tested (Pos, Neg/Pending): 01/16/22 Time Spent With Patient Critical Care time: I spent a total of [] minutes of critical care time on this patient's care today; this time is exclusive of procedural time. Quality VTE Deep Vein Thrombosis/Pulmonary Embolism Present on Admission: No
[2022-01-17 07:15] LABS: Troponin I 0.106 ng/mL (0.01-0.034)
[2022-01-17 07:55] LABS: Thyroid Stimulating Hormone 1.16 uIU/mL (0.47-4.68)
[2022-01-17 08:42] VITALS: BP 143/90; PULSE 63; RESP 20; TEMP 36.3; O2SAT 100
[2022-01-17 08:49] VITALS: BP 143/90; PULSE 63
[2022-01-17] MEDS: ASPIRIN EC 81 MG TABLET PO (08:49)
[2022-01-17] MEDS: lisinopriL 10 MG TABLET PO (08:49)
--- NOTE | 2022-01-17 09:29 | CM.DANOTE ---
Addendum entered by Dara Egan R.N. 01/17/22 14:56: Patient is discharging home today. He was already given a resource from hospitalist to [facility] in [facility] for follow up provider care. This DC Chief Power Dispatcher also gave him the number for [facility], and [facility] as well. Original Note: DCP: Case received, and EMR reviewed. Introduced self and role. Was able to obtain some information from patient. Completed DCP assessment based upon information from patient and EMR. Patient is a 46 year old male who admitted yesterday evening to the care of the hospitalist team. PCP: None currently Payer: confirmed: [employer]. Patient came to the hospital via private vehicle secondary to symptoms of headache, neck and chest pain that had occurred some hours ago. Patient had stated, he was told that he had high blood pressure about 3 years ago, but never followed up. Patient was diagnosed with angina, and HTN. Patient smokes daily, and has consumed about 2-3 cocktails daily, and marijuana use. His EKG noted some abnormal findings, troponin increased as well. Recent note indicates that patient may need cardiac cath, and are attempting to locate a hospital for transfer. Met with patient in his room. He is alert and oriented, and was laying in bed. Confirmed that he resides in [place], is independent, is a commercial baker helper. Confirmed that he has no PCP, and let him know that resources can be given to him for primary care providers. P: DCP to continue to follow. Patient could possibly transfer to a higher level hospital if a bed can be secured. Will discuss further at team rounds. Dara Egan RN/[employer] Discharge Planning/Care Management CM Discharge Assessment Start: 01/17/22 09:27 Freq: Status: Active Protocol: Document 01/17/22 09:28 (Rec: 01/17/22 09:29 [id number]) Discharge Planning Assessment Assigned [employer] Dara Egan RN/[employer] Maker Advance Directives? No History Provided By Patient,Medical Record Prior Living Arrangements House Household Members none Type of transporation used prior to Drives own vehicle admit Independent with ADL's Yes Is patient alert and oriented? Yes Caregiver for Another No Barriers to Discharge No Comment Patient does not have a primary care provider, will need resources. Discharge Plan Transfer to Higher Level of Care Transportation Arrangement If a higher level hospital can be found, would be ambulance Referrals Initiated Other Additional Comment If patient does not transfer, can provide primary care provider information Whiteboard Updated in Patient Room with Yes name and ext. # of [employer] Review Status In Process Next Review Type Continued Stay Review
[2022-01-17 10:00] VITALS: O2SAT 100
[2022-01-17 10:24] LABS: UR Morphine/Opiate cutoff 300 Negative (Negative); Ur Creatinine Normal (Normal); Ur Specific Gravity Normal (Normal); Urine Amphetamines Negative (Negative); Urine Barbiturates Negative (Negative); Urine Benzodiazepines Negative (Negative); Urine Cocaine Negative (Negative); Urine MDMA Negative (Negative); Urine Methadone Negative (Negative); Urine Methamphetamines Negative (Negative); Urine Oxycodone Negative (Negative); Urine Phencyclidine Negative (Negative); Urine Tetrahydrocannabinol Positive (Negative); Urine Tricyclic Antidepressant Negative (Negative); Urine pH Normal (Normal)
[2022-01-17 12:00] VITALS: BP 117/70; PULSE 70; RESP 18; TEMP 36.5; O2SAT 98
[2022-01-17 13:25] LABS: Troponin I 0.043 ng/mL (0.01-0.034)
--- NOTE | 2022-01-17 15:25 | P.DS_ITS ---
History of Present Illness History of Present Illness Date Patient Seen: 01/17/22 Time Patient Seen: 15:26 Chief complaint: migraine/tightness in chest Narrative: Az Herbert is a 46 y.o. smoker with no significant medical history who developed a headache he has had previously. He stated he then started to experience throbby throat pain that then radiated into his upper chest on both sides. He then had tingling of his fingers in both hands. Denies fever, sweats or chills. Stated he was yawning a lot. He had back surgery after a fracture in 2019 and stated after the surgery, he developed high blood pressure, follow-up with a physician at [facility], but eventually stopped follow-up. 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 He denies quitting alcohol consumption abruptly or having withdrawal symptoms when he has had to stop in the past. He was initially started on a nifedipine drip in the ED and requested for admission to the ICU. I discussed the case with the ED provider and he agreed to stop the infusion and administer IV enalapril 0.625 mg. His blood pressure dropped to 182/118 and by the time he arrived to the floor, it was 151/87. Chest x-ray was negative for any acute cardiopulmonary processes.? He is afebrile, blood pressure 140/96 though on presentation to the ED his blood pressure was 206/118 heart rate 64 respiratory rate 20 oxygen saturation of 96% on room air he weighs 102 kg with a BMI of 28.8.? CBC is unremarkable, bicarb 21, creatinine 0.60, his A1c is 5, the rest of his chemistries are within normal limits and COVID-19 PCR is negative. Discharge Providers Provider Date of admission: 01/16/22 21:45 Discharge Date: 01/17/22 Consults: 01/16/22 23:20 Consult to Sound Recordist Routine Comment: Discharge provider: Milo Landry DO Summary Hospital Course Discharge Diagnosis: Hypertensive urgency, resolved and present on admission Possible NSTEMI vs myocardial demand ischemia Possible migraine headache Hospital Course: Admitted for headache vs migraine with jaw involvement with concern for possible chest pain and ACS. BP initially 206/113 in ED which improved with IV meds then placed on po lisinopril. 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 Echo with EF 60-65%, diastolic dysfunction and no focal WMA's with normal LV size and function. Troponin 0.030 then charisma to 0.153 and lowered to 0.106. He had no ongoing CP. Advised patient to be referred to see cardiology. Placed on aspirin, statin, lisinopril and coreg. Gave script for imitrex for possible migraines where patient says he will need to go lie down in a dark room for a while before it will go away. Patient will call [facility] residency clinic for new PCP appointment. Time Spent with Patient Time spent: Greater than 30 minutes Exam Vital Signs (past 8 hours): - 01/17/22 08:42 01/17/22 08:49 01/17/22 10:00 Temperature 97.3 F L Pulse Rate 63 63 Respiratory Rate 20 Blood Pressure 143/90 H 143/90 H Pulse Oximetry 100 100 Oxygen Delivery Method Room Air Oxygen Flow Rate 0 01/17/22 12:00 Temperature 97.7 F Pulse Rate 70 Respiratory Rate 18 Blood Pressure 117/70 Pulse Oximetry 98 Oxygen Delivery Method Oxygen Flow Rate 0 Oxygen Delivery Method Room Air Oxygen Flow Rate 0 Narrative Exam Narrative: Gen: Alert, oriented, well-developed y.o. 46 male, NAD HEENT: normocephalic, atraumatic, conjunctiva clear, sclera non-icteric, oral mucosa pink and moist Neck: supple, full ROM, no JVD, trachea is midline Resp: Lungs CTA, non-labored breathing CV: RRR, no murmur or rubs Abd: soft, non-tender, normoactive BTs Skin: no lesions or rashes, dry and intact Neuro: Alert and oriented X 4 w/no focal deficits. Speech clear and coherent. Extremities: moves all 4 extremities, is ambulatory, negative Lucretia?s sign Psyche: normal mood and affect. Objective Labs Result Diagrams: 01/17/22 06:30 01/17/22 06:30 Labs: Laboratory Results - last 24 hr 01/16/22 01/16/22 01/16/22 17:34 17:34 17:34 WBC 6.4 RBC 5.06 Hgb 15.6 Hct 45.5 MCV 89.9 MCH 30.7 MCHC 34.2 RDW 13.9 Plt Count 189 Neut % (Auto) 69.3 Lymph % (Auto) 19.7 L Hamblen % (Auto) 7.6 Eos % (Auto) 2.9 Baso % (Auto) 0.5 Neut # (Auto) 4500 Lymph # (Auto) 1300 Hamblen # (Auto) 500 Eos # (Auto) 200 Baso # (Auto) 0 Sodium 140 Potassium 3.8 Chloride 105 Carbon Dioxide 21 L BUN 16 Creatinine 0.60 L Estimated GFR > 60 BUN/Creatinine Ratio 26.7 H Glucose 99 Hemoglobin A1c 5.0 Calcium 9.3 Magnesium 1.9 Total Bilirubin 0.8 AST 34 ALT 32 Alkaline Phosphatase 64 Total Creatine Kinase 109 CK-MB (CK-2) 1.64 CK-MB (CK-2) Rel Index 1.5 Troponin I 0.030 Total Protein 8.1 Albumin 4.8 Globulin 3.3 Albumin/Globulin Ratio 1.5 Triglycerides Cholesterol LDL Cholesterol, Calc HDL Cholesterol Lipase 85 TSH U Opiates 300ng/mL cut Ur Oxycodone Screen Urine Methadone Screen Ur Barbiturates Screen U Tricyclic Antidepress Ur Phencyclidine Scrn Ur Amphetamines Screen U Methamphetamines Scrn Ur MDMA Scrn (Ecstasy) U Benzodiazepines Scrn Urine Cocaine Screen U Marijuana (THC) Screen SARS-CoV-2 (PCR) 01/16/22 01/17/22 01/17/22 20:30 00:46 06:30 WBC RBC Hgb Hct MCV MCH MCHC RDW Plt Count Neut % (Auto) Lymph % (Auto) Hamblen % (Auto) Eos % (Auto) Baso % (Auto) Neut # (Auto) Lymph # (Auto) Hamblen # (Auto) Eos # (Auto) Baso # (Auto) Sodium Potassium Chloride Carbon Dioxide BUN Creatinine Estimated GFR BUN/Creatinine Ratio Glucose Hemoglobin A1c Calcium Magnesium Total Bilirubin AST ALT Alkaline Phosphatase Total Creatine Kinase CK-MB (CK-2) CK-MB (CK-2) Rel Index Troponin I 0.153 H* Total Protein Albumin Globulin Albumin/Globulin Ratio Triglycerides 58 Cholesterol 187 LDL Cholesterol, Calc 110 H HDL Cholesterol 65 H Lipase TSH U Opiates 300ng/mL cut Ur Oxycodone Screen Urine Methadone Screen Ur Barbiturates Screen U Tricyclic Antidepress Ur Phencyclidine Scrn Ur Amphetamines Screen U Methamphetamines Scrn Ur MDMA Scrn (Ecstasy) U Benzodiazepines Scrn Urine Cocaine Screen U Marijuana (THC) Screen SARS-CoV-2 (PCR) Negative 01/17/22 01/17/22 01/17/22 06:30 06:30 06:30 WBC 8.0 RBC 5.16 Hgb 15.8 Hct 46.0 MCV 89.2 MCH 30.5 MCHC 34.2 RDW 13.9 Plt Count 210 Neut % (Auto) 68.3 Lymph % (Auto) 20.4 L Hamblen % (Auto) 9.3 Eos % (Auto) 1.6 L Baso % (Auto) 0.4 Neut # (Auto) 5400 Lymph # (Auto) 1600 Hamblen # (Auto) 700 Eos # (Auto) 100 Baso # (Auto) 0 Sodium 137 Potassium 3.7 Chloride 102 Carbon Dioxide 27 BUN 12 Creatinine 0.70 Estimated GFR > 60 BUN/Creatinine Ratio 17.1 Glucose 90 Hemoglobin A1c Calcium 8.9 Magnesium 1.8 Total Bilirubin 0.7 AST 24 ALT 29 Alkaline Phosphatase 50 Total Creatine Kinase CK-MB (CK-2) CK-MB (CK-2) Rel Index Troponin I Total Protein 6.8 Albumin 4.1 Globulin 2.7 Albumin/Globulin Ratio 1.5 Triglycerides Cholesterol LDL Cholesterol, Calc HDL Cholesterol Lipase TSH 1.16 U Opiates 300ng/mL cut Ur Oxycodone Screen Urine Methadone Screen Ur Barbiturates Screen U Tricyclic Antidepress Ur Phencyclidine Scrn Ur Amphetamines Screen U Methamphetamines Scrn Ur MDMA Scrn (Ecstasy) U Benzodiazepines Scrn Urine Cocaine Screen U Marijuana (THC) Screen SARS-CoV-2 (PCR) 01/17/22 01/17/22 01/17/22 06:30 07:50 12:56 WBC RBC Hgb Hct MCV MCH MCHC RDW Plt Count Neut % (Auto) Lymph % (Auto) Hamblen % (Auto) Eos % (Auto) Baso % (Auto) Neut # (Auto) Lymph # (Auto) Hamblen # (Auto) Eos # (Auto) Baso # (Auto) Sodium Potassium Chloride Carbon Dioxide BUN Creatinine Estimated GFR BUN/Creatinine Ratio Glucose Hemoglobin A1c Calcium Magnesium Total Bilirubin AST ALT Alkaline Phosphatase Total Creatine Kinase CK-MB (CK-2) CK-MB (CK-2) Rel Index Troponin I 0.106 H 0.043 H Total Protein Albumin Globulin Albumin/Globulin Ratio Triglycerides Cholesterol LDL Cholesterol, Calc HDL Cholesterol Lipase TSH U Opiates 300ng/mL cut Negative Ur Oxycodone Screen Negative Urine Methadone Screen Negative Ur Barbiturates Screen Negative U Tricyclic Antidepress Negative Ur Phencyclidine Scrn Negative Ur Amphetamines Screen Negative U Methamphetamines Scrn Negative Ur MDMA Scrn (Ecstasy) Negative U Benzodiazepines Scrn Negative Urine Cocaine Screen Negative U Marijuana (THC) Screen Positive H SARS-CoV-2 (PCR) PFSH Medical History Alcohol abuse, daily use Tobacco consumption Social History household members: none Smoking Status: Current every day smoker alcohol intake: current Discharge Plan Discharge Plan Patient Disposition: Home Provider Discharge Comment: You were admitted for chest pain which may have been related to your headache and high blood pressure. Stress test was reassuring but showed an old area of heart attack. I am sending you home on some heart medications as well as for your blood pressure. Please f/u with [facility] for a new PCP and referral to cardiology. You may be having migraines as well so I'll send a migraine medication to take only if you get a real bad headache. This should make it go away quickly. Discharge orders & Medications Prescriptions: New atorvastatin [Lipitor] 20 mg Tablet 40 mg PO BEDTIME Qty: 90 0RF aspirin 81 mg Tablet,Delayed Release (Dr/Ec) 81 mg PO DAILY Qty: 90 0RF lisinopril 10 mg Tablet 10 mg PO DAILY Qty: 90 0RF sumatriptan succinate [Imitrex] 50 mg tablet See Rx Instructions .ROUTE .COMPLEX Qty: 30 0RF Rx Instructions: take 1 tab at onset of headache; if no relief may repeat 1 tab after at least 2 hrs; max = 4 tabs/24 hr carvedilol [Coreg] 6.25 mg tablet 6.25 mg PO BID Qty: 180 0RF Rx Instructions: must administer with a meal/food Visit Report/Discharge Packet Instructions: Atorvastatin, Sumatriptan, Aspirin, Lisinopril, Carvedilol Discharge Data Attending Provider: Nissa Penn VTE Deep Vein Thrombosis/Pulmonary Embolism Present on Admission: No
--- NOTE | 2022-01-17 16:09 | PC.NURSE ---
Pt A&OX3, VSS, afebrile on RA. He is NSR on telemetry this shift. He complains of very mild headache, much better. He remains NPO this a.m. for a stress test, echo completed at bedside. After stress test is completed MD at bedside discussing results and new medications for patient. He is cleared for discharge with new home medications as well as follow up with new PCP with [facility] with understanding of referral to gore maker. He verbalizes understanding of discharge medications, instructions and plan of care. He is escorted out of the hospital with all of his belongings at approximately 1530 this afternoon to private vehicle with a friend.
--- NOTE | 2022-01-17 20:12 | DI.NM.S_ITS ---
DATE OF SERVICE: 01/16/2022 PROCEDURE: Exercise perfusion study. INDICATION: Hypertensive urgency, chest pain, abnormal troponin. RADIOPHARMACEUTICAL: 27.5 millicurie technetium-99m Myoview IV was injected at stress and 9.6 millicurie technetium-99m Myoview IV was injected at rest. CARDIAC STRESS: The patient underwent exercise perfusion study under the supervision of an attending staff. He walked on Brady protocol for 10 minutes and 29 seconds, achieved 84 percent of target heart rate. Baseline blood pressure 120/90 and peak blood pressure 170/108 mmHg. The patient achieved 12.8 METs of workload and YASSINE positive 6 percent. The patient felt fatigue. No chest discomfort. Baseline rhythm was sinus. During exercise, no convincing ischemic changes seen. The patient has some isolated PVCs without any ventricular tachycardia. Also, had some shortness of breath. RAW DATA: There is increased subdiaphragmatic activity. Tissue shadow seen around the heart. The patient's weight is 225 pounds. GATED STUDY: Stress LV ejection fraction 68 percent without any obvious wall motion abnormalities. Stress end-diastolic volume 134 mL. Lung/heart ratio 0.18, which is within normal limits. TID ratio 1.04, which is within normal limits. MYOCARDIAL PERFUSION SCAN: Stress supine, resting supine and stress prone images were compared to each other. Stress supine images revealed a small to moderate size, mild to moderately decreased perfusion of inferior wall, inferoapex, as well as basal anterior wall and anteroseptum. Resting supine images revealed a small to moderate size, mild to moderately decreased perfusion of inferior wall and inferoapex. During stress prone images, there was improvement in inferior wall and inferoapex, as well as basal anterior wall and anteroseptal defect. However prone images remained showed mildly decreased perfusion of basal inferior wall and inferoapex. No reversible ischemia. CONCLUSION: 1. No obvious reversible ischemia. 2. Persistent basal inferior wall and inferoapical defect during stress prone images with some improvement of inferior wall and inferoapical defect. This could be likely due to tissue attenuation artifact with persistent tissue attenuation artifact, as normal wall motion in the inferior wall and inferoapex. However one cannot rule out the possibility of small basal inferior wall and inferoapical nontransmural myocardial infarction. The patient walked on Brady protocol for 10 minutes and 29 seconds. Hypertensive blood pressure response. Achieved 84 percent of target heart rate. No anginal symptoms. No ischemic electrocardiographic changes. Occasional premature ventricular contractions without any ventricular tachycardia. In absence of reversible ischemia and with preserved left ventricular function, overall low-risk myocardial perfusion scan. Correlate clinically. Az Herbert - Hipolito doc#: [id number]/job#: [id number] dd: 01/17/2022 13:10:00 dt: 01/17/2022 19:57:00 DICTATING MD/COPIES TO: Lizett Galloway MD COPIES MNE: BASIM;
== END 2022-01-17 15:30 | disposition home or self-care (01) ==
LOC: ED 18:55 → AC 21:46
PROVIDERS: Emergency Medicine; Admitting Provider Nurse Practitioner Family; Emergency Provider Emergency Medicine; Visit Provider Nurse Practitioner Family
DX: I16.0 Hypertensive urgency (principal); R51.9 Headache, unspecified; M54.2 Cervicalgia; R77.8 Other specified abnormalities of plasma proteins; F17.210 Nicotine dependence, cigarettes, uncomplicated; Z20.822 Contact with and (suspected) exposure to COVID-19
CPT/HCPCS: 36415; 70450; 71045; 78452; 80053; 80061; 80305; 82550; 82553; 83036; 83690; 83735; 84443; 84484; 85025; 87635; 93005; 93017; 93306; 96365; 96372; 96375; 99284; C9803; G0378; A9502; J1650